=== PATIENT | female | born 1965 | race Caucasian/White ===

== ENCOUNTER 2019-12-05 17:42 | Emergency (ER) | payer MEDICAID ==
[~2019-12-05] VITALS: Ht 180.3 cm; Wt 104.1 kg
[~2019-12-05 17:42] MED LIST: ALBU18HF2 INH
[2019-12-05 18:25] LABS: CLARITY,URINE SLIGHTLY CLOUDY (Clear); COLOR,URINE YELLOW (Yellow); GLUCOSE, URINE NEGATIVE (Neg); KETONES,URINE TRACE mg/dl (Neg); LEUKOCYTE ESTERASE ,URINE SMALL (Neg); NITRITES, URINE POSITIVE (Neg); OCCULT BLOOD,URINE NEGATIVE (Neg); PROTEIN,URINE NEGATIVE (Neg); UROBILINOGEN,URINE 0.2 E.U/dL (0.2-1.0)
[2019-12-05 18:37] LABS: UA COLLECTION TYPE CLN CATCH MIDSTREAM
[2019-12-05 18:39] LABS: BACTERIA,URINE 4+ /HPF (Neg); MUCUS STRANDS NONE SEEN /LPF (Neg); RBC,URINE 0-2 /HPF (0-2); SQUAMOUS EPITHELIAL CELL,UR FEW /LPF (FEW); WBC,URINE 20-30 /HPF (0-4)
[2019-12-05] MEDS ORDERED: normal saline 1000ml 1,000 ML IV ONE (18:55)
[2019-12-05] MEDS ORDERED: CEPH-571 PO (19:38)
[2019-12-05] MEDS ORDERED: ketorolac tromethamine 15mg/ml inj. IV ONE (19:40)
[2019-12-05 20:05] VITALS: BP 128/87
== END 2019-12-05 20:09 | disposition home or self-care (01) ==
LOC: ER 17:43
DX: N39.0 Urinary tract infection, site not specified (principal); R51 Headache; R30.0 Dysuria; R10.84 Generalized abdominal pain; J45.909 Unspecified asthma, uncomplicated; F15.90 Other stimulant use, unspecified, uncomplicated; Z87.440 Personal history of urinary (tract) infections; Z88.2 Allergy status to sulfonamides; Z79.2 Long term (current) use of antibiotics; Z79.899 Other long term (current) drug therapy
CPT/HCPCS: 70450; 81001; 87088; 96361; 96374; 99284; J1885; J7030; 87077; 87186

== ENCOUNTER 2020-06-20 12:37 | Emergency (ER) | payer MEDICAID ==
[~2020-06-20] VITALS: Ht 180.3 cm; Wt 102.5 kg
[~2020-06-20 12:37] MED LIST changes: +CEPH-571 PO
[2020-06-20 12:47] VITALS: BP 134/78
[2020-06-20] MEDS ORDERED: ketorolac tromethamine 15mg/ml inj. IM ONE (13:50)
== END 2020-06-20 14:27 | disposition home or self-care (01) ==
LOC: ER 12:37
DX: S39.012A Strain of muscle, fascia and tendon of lower back, initial encounter (principal); J45.909 Unspecified asthma, uncomplicated; F15.90 Other stimulant use, unspecified, uncomplicated; Z87.442 Personal history of urinary calculi; Z87.440 Personal history of urinary (tract) infections; Z88.2 Allergy status to sulfonamides; Z79.2 Long term (current) use of antibiotics; Z79.899 Other long term (current) drug therapy; X58.XXXA Exposure to other specified factors, initial encounter; Y93.89 Activity, other specified; Y92.89 Other specified places as the place of occurrence of the external cause; Y99.8 Other external cause status
CPT/HCPCS: 96372; 99283; J1885

== ENCOUNTER 2020-06-25 14:34 | Emergency (ER) | payer MEDICAID ==
[~2020-06-25] VITALS: Ht 180.3 cm; Wt 100.2 kg
[2020-06-25 14:53] VITALS: BP 125/65
[2020-06-25 15:28] LABS: CLARITY,URINE CLEAR (Clear); COLOR,URINE YELLOW (Yellow); GLUCOSE, URINE NEGATIVE (Neg); KETONES,URINE NEGATIVE (Neg); LEUKOCYTE ESTERASE ,URINE MODERATE (Neg); NITRITES, URINE POSITIVE (Neg); OCCULT BLOOD,URINE TRACE-INTACT (Neg); PH,URINE 5.5 (4.8-8.0); PROTEIN,URINE NEGATIVE (Neg); UROBILINOGEN,URINE 0.2 E.U/dL (0.2-1.0)
[2020-06-25 15:36] LABS: UA COLLECTION TYPE CLN CATCH MIDSTREAM
[2020-06-25 15:37] LABS: BACTERIA,URINE 3+ /HPF (Neg); MUCUS STRANDS FEW /LPF (Neg); RBC,URINE 0-2 /HPF (0-2); SQUAMOUS EPITHELIAL CELL,UR FEW /LPF (FEW); WBC,URINE 20-30 /HPF (0-4)
[2020-06-25] MEDS ORDERED: METH4TAB81 PO (17:34)
[2020-06-25] MEDS ORDERED: CYCL-1 PO (17:34)
[2020-06-25] MEDS ORDERED: NITR100C6 PO (17:40)
== END 2020-06-25 17:58 | disposition home or self-care (01) ==
LOC: ER 14:34
DX: M54.42 Lumbago with sciatica, left side (principal); N39.0 Urinary tract infection, site not specified; R20.0 Anesthesia of skin; J45.909 Unspecified asthma, uncomplicated; Z87.442 Personal history of urinary calculi; Z87.440 Personal history of urinary (tract) infections; Z79.82 Long term (current) use of aspirin; Z79.899 Other long term (current) drug therapy; Z88.2 Allergy status to sulfonamides
CPT/HCPCS: 81001; 87077; 87088; 87186; 99283

== ENCOUNTER 2021-10-28 17:52 | Emergency (ER) | payer MEDICAID ==
[~2021-10-28] VITALS: Ht 177.8 cm; Wt 102.0 kg
[~2021-10-28 17:52] MED LIST changes: +CYCL-1 PO; +METH4TAB81 PO; +NITR100C6 PO
[2021-10-28 20:10] LABS: BASOPHILS % (AUTO) 0.6 % (0-1); EOSINOPHILS # (AUTO) 0.2 X10'3 (0-0.9); EOSINOPHILS % (AUTO) 2.9 % (0-6); HEMATOCRIT 37.3 % (35.0-45.0); HEMOGLOBIN 12.5 g/dl (12.0-16.0); LYMPHOCYTES # (AUTO) 2.1 X10'3 (1.1-4.8); LYMPHOCYTES % (AUTO) 28.7 % (21-51); MEAN CORPUSCULAR HEMOGLOBIN 29.9 PG (27.0-31.0); MEAN CORPUSCULAR HGB CONC 33.6 g/dL (33.0-36.5); MEAN PLATELET VOLUME 9.7 FL (7.4-10.4); MONOCYTES # (AUTO) 0.3 X10'3 (0-0.9); MONOCYTES % (AUTO) 4.8 % (2-12); NEUTROPHILS # (AUTO) 4.5 X10'3 (1.8-7.7); PLATELET COUNT 217 X10'3 (140-440); RED BLOOD COUNT 4.19 X10'6 (4.20-5.60); RED CELL DISTRIBUTION WIDTH 13.4 % (11.5-14.5); WHITE BLOOD COUNT 7.2 X10'3 (4.5-11.0)
[2021-10-28 20:26] LABS: ALANINE AMINOTRANSFERASE 19 U/L (12-78); ALBUMIN 3.7 G/DL (3.4-5.0); ALKALINE PHOSPHATASE 81 IU/L (46-116); ANION GAP 9 (8-16); ASPARTATE AMINO TRANSFERASE 12 U/L (10-37); BILIRUBIN,TOTAL 0.3 MG/DL (0.1-1.0); BLOOD UREA NITROGEN 20 MG/DL (7-18); BUN/CREATININE RATIO 31.3 (6.6-38.0); CALCIUM 9.2 MG/DL (8.5-10.1); CHLORIDE 108 MMOL/L (99-107); CREATININE 0.64 MG/DL (0.40-0.90); GLUCOSE 88 MG/DL (70-104); POTASSIUM 3.8 MMOL/L (3.5-5.1); SODIUM 142 MMOL/L (135-145); TOTAL CARBON DIOXIDE 24.6 MMOL/L (24-32); TOTAL PROTEIN 7.5 G/DL (6.4-8.2); eGFR > 90 ML/MIN
[2021-10-28] MEDS ORDERED: ibuprofen tablet 400 MG TABLET PO ONE (22:15)
[2021-10-28] MEDS ORDERED: acetaminophen 325mg tablet PO ONE (22:15)
[2021-10-28 22:42] VITALS: BP 128/72
== END 2021-10-28 22:48 | disposition home or self-care (01) ==
LOC: ER 17:52
DX: M25.551 Pain in right hip (principal); J45.909 Unspecified asthma, uncomplicated; Z87.442 Personal history of urinary calculi; Z88.2 Allergy status to sulfonamides; Z79.899 Other long term (current) drug therapy
CPT/HCPCS: 36415; 73502; 80053; 85025; 99285

== ENCOUNTER 2022-03-28 05:54 | Day surgery (SDC) | payer MEDICAID ==
[2022-03-27 10:04] LABS: CLARITY,URINE CLEAR (Clear); COLOR,URINE STRAW (Yellow); GLUCOSE, URINE NEGATIVE (Neg); KETONES,URINE NEGATIVE (Neg); LEUKOCYTE ESTERASE ,URINE TRACE (Neg); NITRITES, URINE NEGATIVE (Neg); OCCULT BLOOD,URINE TRACE-INTACT (Neg); PH,URINE 7.5 (4.8-8.0); PROTEIN,URINE NEGATIVE (Neg); UROBILINOGEN,URINE 0.2 E.U/dL (0.2-1.0)
[2022-03-27 10:04] LABS: BASOPHILS % (AUTO) 0.8 % (0-1); EOSINOPHILS # (AUTO) 0.2 X10'3 (0-0.9); EOSINOPHILS % (AUTO) 4.4 % (0-6); LYMPHOCYTES # (AUTO) 1.7 X10'3 (1.1-4.8); MEAN CORPUSCULAR HEMOGLOBIN 29.7 PG (27.0-31.0); MEAN CORPUSCULAR HGB CONC 32.9 g/dL (33.0-36.5); MEAN CORPUSCULAR VOLUME 90.3 FL (78-98); MEAN PLATELET VOLUME 9.2 FL (7.4-10.4); MONOCYTES # (AUTO) 0.3 X10'3 (0-0.9); MONOCYTES % (AUTO) 5.3 % (2-12); NEUTROPHILS # (AUTO) 2.9 X10'3 (1.8-7.7); NEUTROPHILS % (AUTO) 56.5 % (42-75); PRE OP HEMATOCRIT 38.4 % (35.0-45.0); PRE OP HEMOGLOBIN 12.6 g/dL (12.0-16.0); PRE OP PLATELET COUNT 226 X10'3 (140-440); RED BLOOD COUNT 4.25 X10'6 (4.20-5.60); RED CELL DISTRIBUTION WIDTH 13.8 % (11.5-14.5)
[2022-03-27 10:18] LABS: UA COLLECTION TYPE CLN CATCH MIDSTREAM
[2022-03-27 10:21] LABS: MUCUS STRANDS NONE SEEN /LPF (Neg); SQUAMOUS EPITHELIAL CELL,UR FEW /LPF (FEW)
[2022-03-27 10:24] LABS: RBC,URINE 0-2 /HPF (0-2); TRANSITIONAL EPI CELLS,URINE FEW /HPF; WBC,URINE 0-4 /HPF (0-4)
[2022-03-27 10:25] LABS: BACTERIA,URINE FEW /HPF (Neg)
[2022-03-27 10:29] LABS: ALBUMIN 3.6 G/DL (3.4-5.0); ALKALINE PHOSPHATASE 90 IU/L (46-116); BLOOD UREA NITROGEN 9 MG/DL (7-18); BUN/CREATININE RATIO 11.3 (6.6-38.0); CALCIUM 8.8 MG/DL (8.5-10.1); CHLORIDE 105 MMOL/L (99-107); PRE OP ALT 24 U/L (30-65); PRE OP ANION GAP 6 (8-16); PRE OP AST 20 U/L (10-37); PRE OP BILIRUB, TOTAL 0.4 MG/DL (0.0-1.0); PRE OP GLUCOSE 86 MG/DL (70-104); PRE OP POTASSIUM 4.2 MMOL/L (3.4-5.1); PRE OP SODIUM 140 MMOL/L (135-145); TOTAL CARBON DIOXIDE 29.5 MMOL/L (24-32); TOTAL PROTEIN 7.3 G/DL (6.4-8.2); eGFR 74 ML/MIN
[2022-03-28] VITALS (14 sets, daily range): BP systolic 96–143; BP diastolic 38–108
[~2022-03-28] VITALS: Ht 177.8 cm; Wt 102.3 kg
[~2022-03-28 05:54] MED LIST changes: -ALBU18HF2 INH; +ASCO500T28 PO; -CEPH-571 PO; -CYCL-1 PO; +MAGN400T39 PO; -METH4TAB81 PO; -NITR100C6 PO; +ZINC50TA60 PO; +ceFOXitin 2GM-NS 100mL ADDvant 100 ML IV ONE; +famotidine 20mg tablet PO ONE; +ringers solution, lacted 1,000 ML IV SCH
[2022-03-28] MEDS ORDERED: LIDOcaine 1% (10mg/ml) 2ml vial ONE (06:48)
[2022-03-28] MEDS ORDERED: morphine 4 MG/ML inj SYRINge IV PRN (07:30)
[2022-03-28] MEDS ORDERED: ondansetron/PF 4mg/2ml inj IV PRN (07:30)
[2022-03-28] MEDS ORDERED: hydrALAZINE 20mg/ml inj. IV PRN (07:30)
[2022-03-28] MEDS ORDERED: fentaNYL/PF 50MCG/1 ML 2ML syringe IV PRN ×2 (07:30)
[2022-03-28] MEDS ORDERED: ringers solution, lacted 1,000 ML IV SCH (07:30)
[2022-03-28] MEDS ORDERED: morphine 2 MG/ML inj. syringe IV PRN (07:30)
[2022-03-28] MEDS ORDERED: labetalol 20mg/4ml (5mg/ml) syringe IV PRN (07:30)
[2022-03-28] MEDS ORDERED: BUPIVAcaine 0.5% inj/PF 30 ML ONE (09:09)
[2022-03-28] MEDS ORDERED: neostigmine methylsulfate 1 MG/ML 10ml vial ONE (10:05)
[2022-03-28] MEDS ORDERED: sevoflurane 250ml liquid IH ONE (10:05)
[2022-03-28] MEDS ORDERED: dexamethasone sod phosphate 10mg/ml inj ONE (10:05)
[2022-03-28] MEDS ORDERED: FENTANYL CITRATE/PF 50 MCG/1 ML VIAL ONE (10:14)
[2022-03-28] MEDS ORDERED: midazolam 1 mg/ML 2ml injection ONE (10:14)
[2022-03-28] MEDS ORDERED: rocuronium 10mg/ml inj IV ONE (10:20)
[2022-03-28] MEDS ORDERED: LIDOcaine 2% (20mg/ml) 5ml vial ONE (10:20)
[2022-03-28] MEDS ORDERED: propofol inj 20 ML IV ONE (10:20)
[2022-03-28] MEDS ORDERED: glycopyrrolate 0.2mg/ml inj ONE (10:21)
[2022-03-28] MEDS ORDERED: ondansetron/PF 4mg/2ml inj ONE (10:22)
[2022-03-28] MEDS ORDERED: BUPIVAcaine 0.5% inj/PF 30 ml vial IJ ONE (10:26)
[2022-03-28] MEDS ORDERED: ePHEDrine 50MG/ML INJ. ONE (10:39)
--- NOTE | 2022-03-28 11:12 | NUR ---
Received from OR via , accompanied by Anesthesiologist DR LEWIS and report given by Anesthesiolgist. VSS. 20G IN LEFT HAND. LAPSITES X 3 WITH DERMA MCDONOUGH CDI. MASK AT 8 LITERS. Addendum: 03/28/22 at 1235 by Mony Vee RN Amended: Links added.
[2022-03-28] MEDS ORDERED: acetaminophen 1,000mg/100ml IV 100 ML IV STA (11:28)
[2022-03-28] MEDS ORDERED: ketorolac trometh. 30mg/ml inj. IM STA (11:29)
[2022-03-28] MEDS ORDERED: ketorolac trometh. 30mg/ml inj. IV STA (11:39)
[2022-03-28] MEDS ORDERED: HYDROmorphone/PF 0.2 MG/ML SYRINGE IV PRN ×2 (11:50)
--- NOTE | 2022-03-28 13:12 | NUR ---
PATIENT MEETS DISCHARGE CRITERIA. VSS. IV DC'D WITH NO ISSUES. PATIENT STATES PAIN IS TOLERABLE. CALLED DR SEGURA'S OFFICE TO HAVE TRAMADOL ORDERED FOR HOME. EDUCATED THE PATIENT ON ALTERNATIVE PAIN MANAGEMENT AND LET HER KNOW HER PRESCRIPTION WAS CALLED IN. WHEELED PATIENT TO HER MOTHER'S CAR AND EDUCATED HER MOTHER ON DISCHARGE INSTRUCTIONS. Addendum: 03/28/22 at 1418 by Mony Vee RN Amended: Links added.
== END 2022-03-28 13:12 | disposition home or self-care (01) ==
LOC: PAS 05:54
PROVIDERS: ATTEND Surgery
DX: K80.10 Calculus of gallbladder with chronic cholecystitis without obstruction (principal); Z79.899 Other long term (current) drug therapy; Z98.890 Other specified postprocedural states; Z87.440 Personal history of urinary (tract) infections; F41.9 Anxiety disorder, unspecified; Z88.2 Allergy status to sulfonamides
CPT/HCPCS: 36415; 47562; 80053; 81001; 82948; 85025; 87088; 93005; J0131; J0694; J1100; J1170; J1885; J2250; J2270; J2405; J2704; J2710; J3010; J3490; J7030; J7120; S0020; Z7506; Z7508; Z7512; A4215; A4615; A4618; A7000